=== PATIENT | female | born 1970 | race Caucasian/White ===

== ENCOUNTER 2020-12-10 09:58 | Outpatient (CLI) | payer BC | END 2020-12-10 09:59 | disposition home or self-care (01) | LOC: CSHMAMMO 09:58 | PROVIDERS: ATTEND Family Medicine | DX: Z12.31 Encounter for screening mammogram for malignant neoplasm of breast (principal) | CPT/HCPCS: 77063; 77067 ==

== ENCOUNTER 2022-06-08 08:19 | Outpatient (CLI) | payer BC | END 2022-06-08 08:20 | disposition home or self-care (01) | LOC: CSHULT 08:19 | PROVIDERS: ATTEND Student in an Organized Health Care Education/Training Program | DX: T14.8XXA Other injury of unspecified body region, initial encounter (principal); M62.89 Other specified disorders of muscle | CPT/HCPCS: 76706 ==